=== PATIENT | male | born 1935 | race Caucasian/White ===

== ENCOUNTER 2018-04-19 14:29 | Inpatient (IN) ==
[2018-04-22 12:24] VITALS: BP 176/76
== END 2018-04-22 13:35 | disposition home or self-care (01) | DRG 378 ==
LOC: EDUNIT# → N.ED 14:29 → N.EDINP 15:39 → SUATTDRO 15:39 → N.CC 19:28
PROVIDERS: ADMIT Internal Medicine; ATTEND Internal Medicine

== ENCOUNTER 2018-12-18 10:26 | Inpatient (IN) ==
[2018-12-18] MEDS ORDERED: ONDANSETRON 4 MG/2 ML VIAL IV STA ×2 (10:57→12:55)
[2018-12-18] MEDS ORDERED: METOCLOPRAMIDE 10 MG/2 ML VIAL IV STA (10:57)
[2018-12-18] MEDS ORDERED: PANTOPRAZOLE 40 MG VIAL IV STA (10:57)
[2018-12-18] MEDS ORDERED: SODIUM CHLORIDE 0.9% 1,000 ML IV STA ×2 (10:57→12:32)
[2018-12-18 11:10] LABS: Basophils % 0.3 % (0.0-0.8); Eosinophils % 0.3 % (0.00-10.9); Hematocrit 24.9 VOL% (42.0-52.0); Hemoglobin 7.2 GM/DL (14.0-18.0); Immature Granulocytes % 1.3 %; Immature Granulocytes Absolute 0.15 #; Lymphocytes % 8.6 % (21.2-54.2); Mean Corpuscular HGB Conc 28.9 GM/DL (32-36); Mean Corpuscular Hemoglobin 27 PG (27-34); Mean Corpuscular Volume 94.3 FL (87-102); Mean Platelet Volume 10.6 FL (9.6-12.0); Monocytes # 0.4 10*3/uL (0.11-0.8); Monocytes % 3.1 % (1.7-12.7); Neutrophils # 10.1 10*3/uL (1.4-7.4); Neutrophils % 86.4 % (38.7-73.9); Platelet Count 185 T/CUMM (130-400); Red Blood Count 2.64 MC/CUMM (3.8-5.5); Red Cell Distribution Width 18.4 % (9.3-17.3); White Blood Count 11.7 T/CUMM (4-12)
[2018-12-18 11:22] LABS: INR 1.1; PT Patient Result 11.4 SECS; Partial Thromboplastin Time 31.6 SECS (0-40)
[2018-12-18 11:48] LABS: Hypochromasia 1+; Ovalocytes Slight; Platelet Estimate Adequate
[2018-12-18 11:49] LABS: Alanine Aminotransferase 13 U/L (16-61); Albumin 2.6 G/DL (3.4-5.0); Alkaline Phosphatase 57 U/L (45-117); Aspartate Amino Transferase 5 U/L (0-37); Blood Urea Nitrogen 76 MG/DL (7-18); Calcium 7.6 MG/DL (8.5-10.1); Glucose 411 MG/DL (74-106); Osmolality,Calculated 320.3 MOS/KG (273-304); Potassium 5.5 MMOL/L (3.5-5.1); Sodium 141 MMOL/L (136-145); Total Protein 4.9 G/DL (6.4-8.3); Troponin I 0.049 NG/ML (0.00-0.045)
[2018-12-18] MEDS ORDERED: INSULIN REGULAR 100 UNIT/ML SUBCUT STA (12:33)
[2018-12-18] MEDS ORDERED: INSULIN REGULAR 100 UNIT/ML ONE ×2 (12:46→17:35)
[2018-12-18] MEDS ORDERED: PROMETHAZINE 25 MG/1 ML VIAL IM PRN (13:44)
[2018-12-18] MEDS ORDERED: PROMETHAZINE 25 MG/1 ML VIAL IM STA (13:44)
[2018-12-18] MEDS ORDERED: DEXTROSE 50% 25 GM/50 ML VIAL IV PRN (17:14)
[2018-12-18] MEDS ORDERED: MORPHINE 4 MG/1 ML VIAL IV PRN (17:14)
[2018-12-18] MEDS ORDERED: GLUCAGON 1 MG VIAL IM PRN (17:14)
[2018-12-18] MEDS: SODIUM CHLORIDE 0.9% 1,000 ML IV SCH ×2 (17:25→21:15)
[2018-12-18] MEDS: INSULIN REGULAR 100 UNIT/ML SUBCUT SCH ×3 (17:29→21:33)
[2018-12-18] MEDS ORDERED: ACETAMINOPHEN 500 MG TABLET PO ONE (18:50)
[2018-12-18] MEDS ORDERED: ACETAMINOPHEN 500 MG TABLET ONE (18:51)
[2018-12-18] MEDS ORDERED: LACTATED RINGERS 500 ML IV ONE (19:15)
[2018-12-18 19:29] LABS: Hematocrit 22.6 VOL% (42.0-52.0); Hemoglobin 6.6 GM/DL (14.0-18.0)
[2018-12-18] MEDS: MEROPENEM 1,000 MG in SODIUM CHLORIDE 0.9% 100 ML IV SCH (20:30)
[2018-12-18] MEDS ORDERED: SODIUM CHLORIDE 0.9% 1,000 ML IV PRN (20:53)
[2018-12-18] MEDS: PANTOPRAZOLE 40 MG VIAL IV SCH (21:30)
[2018-12-18] MEDS ORDERED: LEVOFLOXACIN INJ 500 MG in PREMIX 1 EACH IV ONE (21:30)
[2018-12-18] MEDS: INSULIN GLARGINE 100 UNIT/ML SUBCUT SCH (21:38)
[2018-12-18 23:16] LABS: Apearance,Urine CLOUDY (Clear); Bilirubin,Urine Negative (Negative); Blood, Urine Small mg/dL (Negative); Glucose,Urine (UA) >=500 mg/dL (Negative); Hyaline Casts,Urine 3 /LPF (0-3); Ketones,Urine 5 mg/dL (Negative); Mucus,Urine Occasional /LPF (Occasional); Nitrite,Urine Negative (Negative); Protein,Urine Negative; RBC,Urine 19 /HPF (0-4); Urine Color Yellow (Yellow); Urine Specific Gravity 1.012 (1.001-1.035); Urine Urobilinogen < 2.0 EU/DL (0.2-1.0); WBC,Urine 133 /HPF (0-6)
[2018-12-19] MEDS: SODIUM CHLORIDE 0.9% 1,000 ML IV SCH ×3 (03:05→22:25)
[2018-12-19] MEDS: INSULIN REGULAR 100 UNIT/ML SUBCUT SCH ×6 (03:08→20:00)
[2018-12-19 05:35] LABS: Basophils % 0.2 % (0.0-0.8); Eosinophils % 0.2 % (0.00-10.9); Hematocrit 22.7 VOL% (42.0-52.0); Hemoglobin 6.9 GM/DL (14.0-18.0); Immature Granulocytes % 0.7 %; Immature Granulocytes Absolute 0.08 #; Lymphocytes # 0.8 10*3/uL (1.4-4.0); Lymphocytes % 6.4 % (21.2-54.2); Mean Corpuscular HGB Conc 30.4 GM/DL (32-36); Mean Corpuscular Hemoglobin 27 PG (27-34); Mean Corpuscular Volume 90.1 FL (87-102); Mean Platelet Volume 11.7 FL (9.6-12.0); Monocytes # 0.7 10*3/uL (0.11-0.8); Monocytes % 5.5 % (1.7-12.7); Neutrophils # 10.5 10*3/uL (1.4-7.4); Platelet Count 154 T/CUMM (130-400); Red Blood Count 2.52 MC/CUMM (3.8-5.5); Red Cell Distribution Width 18.3 % (9.3-17.3)
[2018-12-19 05:45] LABS: Calcium 7.7 MG/DL (8.5-10.1); Osmolality,Calculated 325.1 MOS/KG (273-304)
[2018-12-19] MEDS: LEVOTHYROXINE 50 MCG TABLET PO SCH (06:47)
[2018-12-19] MEDS ORDERED: SODIUM CHLORIDE 0.9% 1,000 ML IV PRN ×2 (07:56→08:34)
[2018-12-19] MEDS: MEROPENEM 1,000 MG in SODIUM CHLORIDE 0.9% 100 ML IV SCH ×2 (09:15→22:25)
[2018-12-19] MEDS: PANTOPRAZOLE 40 MG VIAL IV SCH ×2 (09:35→22:26)
[2018-12-19] MEDS ORDERED: PROPOFOL 200 MG/20 ML VIAL IV ONE (10:00)
[2018-12-19] MEDS ORDERED: LIDOCAINE 2% 5 ML VIAL ONE (10:00)
[2018-12-19] MEDS: FINASTERIDE 5 MG TABLET PO SCH (10:47)
[2018-12-19 19:20] LABS: Hematocrit 28.4 VOL% (42.0-52.0); Hemoglobin 8.8 GM/DL (14.0-18.0)
[2018-12-19] MEDS: INSULIN GLARGINE 100 UNIT/ML SUBCUT SCH (21:00)
[2018-12-19] MEDS: LEVOFLOXACIN INJ 250 MG in PREMIX 1 EACH IV SCH (22:59)
[2018-12-20] MEDS: LEVOTHYROXINE 50 MCG TABLET PO SCH (06:16)
[2018-12-20 06:58] LABS: Basophils % 0.5 % (0.0-0.8); Eosinophils # 0.1 10*3/uL (0.0-0.87); Eosinophils % 1.2 % (0.00-10.9); Hemoglobin 8.3 GM/DL (14.0-18.0); Immature Granulocytes Absolute 0.08 #; Lymphocytes # 0.5 10*3/uL (1.4-4.0); Lymphocytes % 5.6 % (21.2-54.2); Mean Corpuscular HGB Conc 30.7 GM/DL (32-36); Mean Corpuscular Hemoglobin 28 PG (27-34); Mean Corpuscular Volume 91.5 FL (87-102); Mean Platelet Volume 10.5 FL (9.6-12.0); Monocytes # 0.4 10*3/uL (0.11-0.8); Monocytes % 4.8 % (1.7-12.7); Neutrophils # 7.3 10*3/uL (1.4-7.4); Neutrophils % 86.9 % (38.7-73.9); Platelet Count 136 T/CUMM (130-400); Red Blood Count 2.95 MC/CUMM (3.8-5.5); Red Cell Distribution Width 18.1 % (9.3-17.3); White Blood Count 8.4 T/CUMM (4-12)
[2018-12-20] MEDS: INSULIN REGULAR 100 UNIT/ML SUBCUT SCH ×6 (07:05→21:06)
[2018-12-20] MEDS: SODIUM CHLORIDE 0.9% 1,000 ML IV SCH ×4 (07:05→23:42)
[2018-12-20 07:27] LABS: Calcium 7.7 MG/DL (8.5-10.1); Osmolality,Calculated 318.3 MOS/KG (273-304); Potassium 5.4 MMOL/L (3.5-5.1)
[2018-12-20] MEDS: PANTOPRAZOLE 40 MG VIAL IV SCH ×2 (08:41→20:58)
[2018-12-20] MEDS: MEROPENEM 1,000 MG in SODIUM CHLORIDE 0.9% 100 ML IV SCH ×2 (08:41→20:57)
[2018-12-20] MEDS: FINASTERIDE 5 MG TABLET PO SCH (08:41)
[2018-12-20] MEDS ORDERED: MAGNESIUM SULF RIDER 2 GM in PREMIX 1 EACH IV ONE (09:30)
[2018-12-20] MEDS: INSULIN GLARGINE 100 UNIT/ML SUBCUT SCH (20:57)
[2018-12-20] MEDS: LEVOFLOXACIN INJ 250 MG in PREMIX 1 EACH IV SCH (21:03)
[2018-12-21] MEDS: LEVOTHYROXINE 50 MCG TABLET PO SCH (05:37)
[2018-12-21 05:44] LABS: Basophils % 0.1 % (0.0-0.8); Eosinophils # 0.1 10*3/uL (0.0-0.87); Eosinophils % 1.7 % (0.00-10.9); Hematocrit 26.4 VOL% (42.0-52.0); Immature Granulocytes % 1.2 %; Immature Granulocytes Absolute 0.09 #; Lymphocytes # 0.6 10*3/uL (1.4-4.0); Lymphocytes % 7.1 % (21.2-54.2); Mean Corpuscular HGB Conc 30.3 GM/DL (32-36); Mean Corpuscular Hemoglobin 28 PG (27-34); Mean Platelet Volume 11.5 FL (9.6-12.0); Monocytes # 0.5 10*3/uL (0.11-0.8); Monocytes % 6.2 % (1.7-12.7); Neutrophils # 6.5 10*3/uL (1.4-7.4); Neutrophils % 83.7 % (38.7-73.9); Platelet Count 154 T/CUMM (130-400); Red Cell Distribution Width 17.7 % (9.3-17.3); White Blood Count 7.7 T/CUMM (4-12)
[2018-12-21 06:08] LABS: Osmolality,Calculated 306.6 MOS/KG (273-304); Potassium 4.9 MMOL/L (3.5-5.1)
[2018-12-21] MEDS: INSULIN REGULAR 100 UNIT/ML SUBCUT SCH ×4 (07:30→21:29)
[2018-12-21] MEDS ORDERED: SODIUM CHLORIDE 0.45% 1,000 ML IV SCH (09:00)
[2018-12-21] MEDS: FINASTERIDE 5 MG TABLET PO SCH (09:05)
[2018-12-21] MEDS: PANTOPRAZOLE 40 MG VIAL IV SCH ×2 (09:05→20:39)
[2018-12-21] MEDS: MEROPENEM 1,000 MG in SODIUM CHLORIDE 0.9% 100 ML IV SCH ×2 (09:07→21:30)
[2018-12-21] MEDS: LEVOFLOXACIN INJ 250 MG in PREMIX 1 EACH IV SCH (20:58)
[2018-12-21] MEDS: INSULIN GLARGINE 100 UNIT/ML SUBCUT SCH (21:30)
[2018-12-22 03:25] LABS: Apearance,Urine CLEAR (Clear); Bilirubin,Urine Negative (Negative); Blood, Urine Moderate mg/dL (Negative); Glucose,Urine (UA) 50 mg/dL (Negative); Ketones,Urine 5 mg/dL (Negative); Mucus,Urine Occasional /LPF (Occasional); Nitrite,Urine Negative (Negative); Protein,Urine 30 MG/DL; RBC,Urine 15 /HPF (0-4); Squamous Epithelial Cell,Urine Occasional /HPF (0-10); Urine Color Yellow (Yellow); Urine Specific Gravity 1.015 (1.001-1.035); Urine Urobilinogen < 2.0 EU/DL (0.2-1.0); WBC,Urine 37 /HPF (0-6)
[2018-12-22 05:49] LABS: Basophils % 0.4 % (0.0-0.8); Eosinophils # 0.2 10*3/uL (0.0-0.87); Eosinophils % 4.4 % (0.00-10.9); Hemoglobin 7.8 GM/DL (14.0-18.0); Immature Granulocytes % 1.2 %; Immature Granulocytes Absolute 0.06 #; Lymphocytes # 0.7 10*3/uL (1.4-4.0); Mean Corpuscular Hemoglobin 28 PG (27-34); Mean Corpuscular Volume 92.5 FL (87-102); Mean Platelet Volume 11.4 FL (9.6-12.0); Monocytes # 0.5 10*3/uL (0.11-0.8); Neutrophils # 3.6 10*3/uL (1.4-7.4); Platelet Count 165 T/CUMM (130-400); Red Blood Count 2.81 MC/CUMM (3.8-5.5); Red Cell Distribution Width 17.7 % (9.3-17.3)
[2018-12-22 06:06] LABS: Albumin 2.2 G/DL (3.4-5.0); Bilirubin,Total 0.6 MG/DL (0.2-1.0); Calcium 7.9 MG/DL (8.5-10.1); Osmolality,Calculated 299.4 MOS/KG (273-304); Potassium 4.3 MMOL/L (3.5-5.1); Total Protein 5.1 G/DL (6.4-8.3)
[2018-12-22] MEDS: LEVOTHYROXINE 50 MCG TABLET PO SCH (06:35)
[2018-12-22] MEDS: INSULIN REGULAR 100 UNIT/ML SUBCUT SCH ×4 (09:47→21:18)
[2018-12-22] MEDS: FINASTERIDE 5 MG TABLET PO SCH (10:04)
[2018-12-22] MEDS: MEROPENEM 1,000 MG in SODIUM CHLORIDE 0.9% 100 ML IV SCH (10:43)
[2018-12-22] MEDS: PANTOPRAZOLE 40 MG VIAL IV SCH ×2 (13:01→21:16)
[2018-12-22] MEDS: TAMSULOSIN 0.4 MG CAPSULE PO SCH ×2 (13:03→21:16)
[2018-12-22] MEDS: AMPICILLIN INJ 1,000 MG in SODIUM CHLORIDE 0.9% 100 ML IV SCH ×2 (16:07→21:21)
[2018-12-22] MEDS: GABAPENTIN 300 MG CAPSULE PO SCH (21:16)
[2018-12-22] MEDS: glipiZIDE 10 MG TABLET PO SCH (21:16)
[2018-12-22] MEDS: INSULIN GLARGINE 100 UNIT/ML SUBCUT SCH (21:17)
[2018-12-22] MEDS: LEVOFLOXACIN INJ 250 MG in PREMIX 1 EACH IV SCH (22:27)
[2018-12-23] MEDS: AMPICILLIN INJ 1,000 MG in SODIUM CHLORIDE 0.9% 100 ML IV SCH ×4 (03:12→20:20)
[2018-12-23 04:26] LABS: Basophils % 0.6 % (0.0-0.8); Eosinophils # 0.3 10*3/uL (0.0-0.87); Eosinophils % 5.6 % (0.00-10.9); Hematocrit 26.4 VOL% (42.0-52.0); Hemoglobin 7.8 GM/DL (14.0-18.0); Immature Granulocytes % 1.9 %; Immature Granulocytes Absolute 0.09 #; Lymphocytes # 0.7 10*3/uL (1.4-4.0); Lymphocytes % 15.6 % (21.2-54.2); Mean Corpuscular HGB Conc 29.5 GM/DL (32-36); Mean Corpuscular Hemoglobin 28 PG (27-34); Mean Platelet Volume 10.9 FL (9.6-12.0); Monocytes # 0.5 10*3/uL (0.11-0.8); Monocytes % 9.8 % (1.7-12.7); Neutrophils # 3.1 10*3/uL (1.4-7.4); Neutrophils % 66.5 % (38.7-73.9); Platelet Count 183 T/CUMM (130-400); Red Blood Count 2.84 MC/CUMM (3.8-5.5); Red Cell Distribution Width 17.2 % (9.3-17.3); White Blood Count 4.7 T/CUMM (4-12)
[2018-12-23 04:41] LABS: Calcium 7.8 MG/DL (8.5-10.1); Osmolality,Calculated 295.6 MOS/KG (273-304); Potassium 4.4 MMOL/L (3.5-5.1)
[2018-12-23] MEDS: LEVOTHYROXINE 50 MCG TABLET PO SCH (05:43)
[2018-12-23] MEDS ORDERED: MAGNESIUM SULF RIDER 2 GM in PREMIX 1 EACH IV ONE (08:18)
[2018-12-23] MEDS: FINASTERIDE 5 MG TABLET PO SCH (08:43)
[2018-12-23] MEDS: PANTOPRAZOLE 40 MG VIAL IV SCH ×2 (08:43→20:20)
[2018-12-23] MEDS: glipiZIDE 10 MG TABLET PO SCH ×2 (08:43→20:20)
[2018-12-23] MEDS: TAMSULOSIN 0.4 MG CAPSULE PO SCH ×3 (08:43→20:20)
[2018-12-23] MEDS: INSULIN REGULAR 100 UNIT/ML SUBCUT SCH ×4 (08:52→22:25)
[2018-12-23] MEDS: amLODIPine 5 MG TABLET PO SCH (15:25)
[2018-12-23] MEDS: GABAPENTIN 300 MG CAPSULE PO SCH (20:20)
[2018-12-23] MEDS: LEVOFLOXACIN INJ 250 MG in PREMIX 1 EACH IV SCH (22:24)
[2018-12-23] MEDS: INSULIN GLARGINE 100 UNIT/ML SUBCUT SCH (22:26)
[2018-12-24] MEDS: AMPICILLIN INJ 1,000 MG in SODIUM CHLORIDE 0.9% 100 ML IV SCH ×3 (04:42→15:24)
[2018-12-24 05:01] LABS: Basophils % 0.4 % (0.0-0.8); Eosinophils # 0.3 10*3/uL (0.0-0.87); Eosinophils % 4.4 % (0.00-10.9); Hematocrit 24.6 VOL% (42.0-52.0); Hemoglobin 7.4 GM/DL (14.0-18.0); Immature Granulocytes % 4.1 %; Immature Granulocytes Absolute 0.23 #; Lymphocytes # 0.8 10*3/uL (1.4-4.0); Lymphocytes % 13.5 % (21.2-54.2); Mean Corpuscular HGB Conc 30.1 GM/DL (32-36); Mean Corpuscular Hemoglobin 27 PG (27-34); Mean Corpuscular Volume 90.8 FL (87-102); Mean Platelet Volume 10.9 FL (9.6-12.0); Monocytes # 0.5 10*3/uL (0.11-0.8); Monocytes % 8.7 % (1.7-12.7); NRBC # 0.02 10*3/uL; Neutrophils # 3.9 10*3/uL (1.4-7.4); Neutrophils % 68.9 % (38.7-73.9); Platelet Count 218 T/CUMM (130-400); Red Blood Count 2.71 MC/CUMM (3.8-5.5); Red Cell Distribution Width 17.1 % (9.3-17.3); White Blood Count 5.7 T/CUMM (4-12)
[2018-12-24 05:16] LABS: Calcium 7.6 MG/DL (8.5-10.1); Osmolality,Calculated 285.3 MOS/KG (273-304); Potassium 4.6 MMOL/L (3.5-5.1)
[2018-12-24] MEDS: LEVOTHYROXINE 50 MCG TABLET PO SCH (06:03)
[2018-12-24] MEDS ORDERED: SODIUM CHLORIDE 0.9% 1,000 ML IV PRN (07:14)
[2018-12-24] MEDS: INSULIN REGULAR 100 UNIT/ML SUBCUT SCH ×2 (07:56→12:21)
[2018-12-24] MEDS: glipiZIDE 10 MG TABLET PO SCH (08:51)
[2018-12-24] MEDS: FINASTERIDE 5 MG TABLET PO SCH (08:51)
[2018-12-24] MEDS: amLODIPine 5 MG TABLET PO SCH (08:52)
[2018-12-24] MEDS: TAMSULOSIN 0.4 MG CAPSULE PO SCH (08:52)
[2018-12-24] MEDS: PANTOPRAZOLE 40 MG VIAL IV SCH (08:53)
[2018-12-24 15:59] VITALS: BP 163/84
== END 2018-12-24 16:39 | disposition home health service (06) | DRG 369 ==
LOC: N.ED 10:26 → N.EDINP 13:44 → SUATTDRO 13:44 → N.CC 21:00 → N.5E 12-20 13:39
PROVIDERS: ADMIT Internal Medicine; ATTEND Internal Medicine